=== PATIENT | female | born 1930 | race Caucasian/White ===

== ENCOUNTER 2016-11-26 09:26 | Observation (INO) | payer OTHER ==
[~2016-11-26] VITALS: Ht 148.6 cm; Wt 75.1 kg
[~2016-11-26 09:26] MED LIST: ASPIR 8181 M1 PO; AZO95 MG PO; B-COMPLEX W/VI1 EAC1 PO; BENICAR5 MG PO; CALCIUM PO; CALCIUM500 M4 PO; CHERATUSSIN AC473 ML PO; CIPRO500 MG PO; FISH OIL SOFTG1 EACH PO; MACROBID100 MG PO; MICARDIS80 MG PO; PYRIDIUM100 MG PO; RED YEAST RICE600 M1 PO; RED YEAST RICE600 MG PO; SPIRONOLACTONE25 MG PO; SUPPORT-5001 EACH PO; TELMISARTAN80 MG PO; TESSALON PERLE100 MG PO; VITAMIN D33000 UNIT PO; VITAMIN D400 UNIT PO; ZOFRAN ODT8 MG PO; ZOFRAN4 MG PO; [UNRECOGNIZED DRUG - REMARK] PO
[2016-11-26 10:55] LABS: EOSINOPHIL (%) 2.1 % (0-5); EOSINOPHIL COUNT 0.2 K/uL (0-0.3); HEMATOCRIT 38.5 % (36.0-46.0); IMMATURE GRANULOCYTE (%) 0.3 % (0.0-0.7); INSTRUMENT ABS NEUTROPHIL CT 5.6 K/uL; LYMPHOCYTE COUNT 0.8 K/uL (1.0-2.8); MCH 29.9 PG (29.0-34.0); MCHC 33.5 G/DL (30.0-36.0); MCV 89.1 FL (83-99); MEAN PLAT.VOLUME 8.4 uM^3 (9.5-12.4); MONOCYTE (%) 9.5 % (3-12); MONOCYTE COUNT 0.7 K/uL (0-0.8); NEUTROPHIL (%) 76.6 % (45-76); NEUTROPHIL COUNT 5.6 K/uL (1.8-6.4); PLATELET COUNT 180 K/uL (156-360); RBC DIS.WIDTH-CV 13.5 % (11.8-14.6); RBC DIS.WIDTH-SD 44.5 % (39-53); RED BLOOD COUNT 4.32 M/uL (3.80-5.20); WHITE BLOOD COUNT 7.3 K/uL (4.1-10.2)
[2016-11-26 11:00] LABS: TROP-I INTERPRETATION NEGATIVE; TROPONIN-I < 0.01 ng/mL (0.0-0.30)
[2016-11-26 11:06] LABS: CHLORIDE 97 mEq/L (99-109); POTASSIUM 4.6 mEq/L (3.7-5.4); SODIUM 129 mEq/L (136-147)
[2016-11-26 11:08] LABS: GLUCOSE 97 mg/dL (70-99)
[2016-11-26 11:10] LABS: ANION GAP 5 MEQ/L (2-14)
[2016-11-26 11:12] LABS: GFR ESTIMATE (CALCULATED) > 59 mL/min/
[2016-11-26 11:13] LABS: UREA NITROGEN (BUN) 20 mg/dL (9-23)
[2016-11-26] MEDS ORDERED: VITAMIN D31000 UNI2 PO ×2 (11:50→11:51)
[2016-11-26] MEDS ORDERED: RED YEAST RICE600 M1 PO (11:51)
[2016-11-26] MEDS ORDERED: CLOBETASOL PROP60 G1 TP (11:52)
[2016-11-26] MEDS ORDERED: ESTRACE42.5 GM VG (11:53)
[2016-11-26] MEDS ORDERED: PRESERVISION A1 EAC2 PO (11:54)
[2016-11-26] MEDS ORDERED: PROBIOTIC1 EAC1 PO (11:56)
[2016-11-26 12:40] VITALS: BP 134/64
[2016-11-26 17:19] VITALS: BP 174/70
[2016-11-26 17:59] LABS: TROP-I INTERPRETATION NEGATIVE; TROPONIN-I 0.01 ng/mL (0.0-0.30)
[2016-11-26 19:34] VITALS: BP 120/85
[2016-11-26 22:45] LABS: TROP-I INTERPRETATION NEGATIVE; TROPONIN-I < 0.01 ng/mL (0.0-0.30)
[2016-11-27] VITALS: BP 137/63
[2016-11-27 04:02] VITALS: BP 138/59
[2016-11-27 06:20] LABS: ANION GAP 3 MEQ/L (2-14); CHLORIDE 103 MEQ/L (99-109); GFR ESTIMATE (CALCULATED) > 59 mL/min/; GLUCOSE 95 mg/dL (70-99); POTASSIUM 4.6 MEQ/L (3.7-5.4); SAMPLE HEMOLYSIS CHECK 0; SAMPLE ICTERIC CHECK 0; SAMPLE LIPEMIA CHECK 0; UREA NITROGEN (BUN) 20 mg/dL (9-23)
[2016-11-27 06:32] LABS: SODIUM 136 MEQ/L (136-147)
[2016-11-27 07:16] VITALS: BP 142/67
== END 2016-11-27 09:16 | disposition home or self-care (01) ==
LOC: EME 09:26 → EDOF 11:40 → 5WEST 12:32
PROVIDERS: Emergency Medicine; Internal Medicine
DX: R07.9 Chest pain, unspecified (principal); I10 Essential (primary) hypertension; I34.0 Nonrheumatic mitral (valve) insufficiency; I27.2 Other secondary pulmonary hypertension; R42 Dizziness and giddiness; K21.9 Gastro-esophageal reflux disease without esophagitis; N28.89 Other specified disorders of kidney and ureter; E87.1 Hypo-osmolality and hyponatremia; H35.30 Unspecified macular degeneration; Z88.0 Allergy status to penicillin; Z88.8 Allergy status to other drugs, medicaments and biological substances
CPT/HCPCS: 71010; 80048; 83930; 83935; 84443; 84484; 85025; 93005; G0378; J1650; J7030

== ENCOUNTER 2017-07-09 23:19 | Inpatient (IN) | payer OTHER ==
[~2017-07-09] VITALS: Ht 147.3 cm; Wt 79.3 kg
[~2017-07-09 23:19] MED LIST changes: -B-COMPLEX W/VI1 EAC1 PO; +CLOBETASOL PROP60 G1 TP; +COMPLEX B-1001 EACH PO; +ESTRACE42.5 GM VG; +PRESERVISION A1 EAC2 PO; +PROBIOTIC1 EAC1 PO; +VITAMIN D31000 UNI2 PO
[2017-07-10 00:21] LABS: HEMATOCRIT 35.4 % (36.0-46.0); HEMOGLOBIN 12.4 G/DL (11.9-15.5); MCH 30.1 PG (29.0-34.0); MCV 85.9 FL (83-99); PLATELET COUNT 141 K/uL (156-360); RBC DIS.WIDTH-CV 13.4 % (11.8-14.6); RBC DIS.WIDTH-SD 42.1 % (39-53); RED BLOOD COUNT 4.12 M/uL (3.80-5.20); WHITE BLOOD COUNT 4.2 K/uL (4.1-10.2)
[2017-07-10 00:29] LABS: CHLORIDE 86 mEq/L (99-109); POTASSIUM 4.2 mEq/L (3.7-5.4)
[2017-07-10 00:31] LABS: GLUCOSE 107 mg/dL (70-99)
[2017-07-10 00:35] LABS: CREATININE 0.7 mg/dL (0.6-1.3); GFR ESTIMATE (CALCULATED) > 59 mL/min/
[2017-07-10 00:36] LABS: UREA NITROGEN (BUN) 11 mg/dL (9-23)
[2017-07-10 00:43] LABS: SODIUM 117 mEq/L (136-147)
[2017-07-10 01:11] LABS: TROP-I INTERPRETATION NEGATIVE; TROPONIN-I < 0.01 ng/mL (0.0-0.30)
[2017-07-10 04:12] LABS: CHLORIDE 89 mEq/L (99-109); POTASSIUM 4.5 mEq/L (3.7-5.4)
[2017-07-10 04:13] LABS: GLUCOSE 131 mg/dL (70-99)
[2017-07-10 04:17] LABS: CREATININE 0.7 mg/dL (0.6-1.3); GFR ESTIMATE (CALCULATED) > 59 mL/min/
[2017-07-10 04:18] LABS: UREA NITROGEN (BUN) 10 mg/dL (9-23)
[2017-07-10 04:25] LABS: SODIUM 116 mEq/L (136-147)
[2017-07-10 06:10] VITALS: BP 183/76
[2017-07-10 08:00] VITALS: BP 164/74
[2017-07-10] MEDS ORDERED: RISEDRONATE SOD35 M1 PO (11:30)
[2017-07-10] MEDS ORDERED: IRON325 M1 PO (11:31)
[2017-07-10] MEDS ORDERED: CLONIDINE HCL0.1 MG PO (11:31)
[2017-07-10] MEDS ORDERED: DAIRY RELIE3000 UNIT PO (11:35)
[2017-07-10] MEDS ORDERED: [UNRECOGNIZED DRUG - OTHER] PO (11:37)
[2017-07-10] MEDS ORDERED: RANITIDINE HCL150 MG PO (11:38)
[2017-07-10] MEDS ORDERED: BALANCE B-1001 EAC1 PO (11:38)
[2017-07-10] MEDS ORDERED: GLUCOSAMINE CH1 EAC7 PO (11:38)
[2017-07-10 11:52] VITALS: BP 152/70
[2017-07-10 12:48] LABS: CHLORIDE 92 MEQ/L (99-109); CREATININE 0.7 MG/DL (0.6-1.3); GFR ESTIMATE (CALCULATED) > 59 mL/min/; GLUCOSE 148 mg/dL (70-99); POTASSIUM 4.9 MEQ/L (3.7-5.4); UREA NITROGEN (BUN) 12 mg/dL (9-23)
[2017-07-10 12:49] LABS: SODIUM 126 MEQ/L (136-147)
[2017-07-10 12:52] LABS: TROP-I INTERPRETATION NEGATIVE; TROPONIN-I < 0.01 ng/mL (0.0-0.30)
[2017-07-10 15:38] LABS: CHLORIDE 90 MEQ/L (99-109); POTASSIUM 4.3 MEQ/L (3.7-5.4); SODIUM 122 MEQ/L (136-147)
[2017-07-10 15:43] LABS: CREATININE 0.8 MG/DL (0.6-1.3); GFR ESTIMATE (CALCULATED) > 59 mL/min/; UREA NITROGEN (BUN) 14 mg/dL (9-23)
[2017-07-10 16:00] LABS: GLUCOSE 254 mg/dL (70-99)
[2017-07-10 16:30] VITALS: BP 136/72
[2017-07-10 17:02] LABS: APPEARANCE CLEAR ((CLEAR)); BILIRUBIN NEGATIVE; BLOOD NEGATIVE; COLOR STRAW ((YELLOW)); GLUCOSE (STRIP) >=500; KETONES NEGATIVE; LEUKOCYTES NEGATIVE; NITRITE NEGATIVE; PROTEIN (STRIP) NEGATIVE; UCUL ADDED? NO; UROBILINOGEN 0.2 MG/DL (0.2-1.0)
[2017-07-10 18:39] LABS: CHLORIDE 89 MEQ/L (99-109); CREATININE 0.7 MG/DL (0.6-1.3); GFR ESTIMATE (CALCULATED) > 59 mL/min/; GLUCOSE 117 mg/dL (70-99); POTASSIUM 4.5 MEQ/L (3.7-5.4); SODIUM 121 MEQ/L (136-147); TROP-I INTERPRETATION NEGATIVE; TROPONIN-I < 0.01 ng/mL (0.0-0.30); UREA NITROGEN (BUN) 16 mg/dL (9-23)
[2017-07-10 19:43] VITALS: BP 144/65
[2017-07-10 20:09] LABS: CHLORIDE 88 MEQ/L (99-109); CREATININE 0.7 MG/DL (0.6-1.3); GFR ESTIMATE (CALCULATED) > 59 mL/min/; GLUCOSE 160 mg/dL (70-99); POTASSIUM 4.1 MEQ/L (3.7-5.4); SODIUM 120 MEQ/L (136-147); UREA NITROGEN (BUN) 17 mg/dL (9-23)
[2017-07-10 22:37] LABS: CHLORIDE 88 MEQ/L (99-109); CREATININE 0.7 MG/DL (0.6-1.3); GFR ESTIMATE (CALCULATED) > 59 mL/min/; GLUCOSE 120 mg/dL (70-99); SODIUM 120 MEQ/L (136-147); UREA NITROGEN (BUN) 18 mg/dL (9-23)
[2017-07-10 23:41] VITALS: BP 137/64
[2017-07-11 00:11] LABS: CHLORIDE 88 mEq/L (99-109); POTASSIUM 4.2 mEq/L (3.7-5.4); SODIUM 121 mEq/L (136-147)
[2017-07-11 00:13] LABS: GLUCOSE 112 mg/dL (70-99)
[2017-07-11 00:16] LABS: CREATININE 0.7 mg/dL (0.6-1.3); GFR ESTIMATE (CALCULATED) > 59 mL/min/
[2017-07-11 00:17] LABS: UREA NITROGEN (BUN) 17 mg/dL (9-23)
[2017-07-11 01:17] LABS: CHLORIDE 88 mEq/L (99-109); POTASSIUM 4.1 mEq/L (3.7-5.4); SODIUM 121 mEq/L (136-147)
[2017-07-11 01:19] LABS: GLUCOSE 114 mg/dL (70-99)
[2017-07-11 01:23] LABS: CREATININE 0.7 mg/dL (0.6-1.3); GFR ESTIMATE (CALCULATED) > 59 mL/min/; UREA NITROGEN (BUN) 17 mg/dL (9-23)
[2017-07-11 03:55] LABS: CHLORIDE 89 mEq/L (99-109); SODIUM 120 mEq/L (136-147)
[2017-07-11 03:57] LABS: GLUCOSE 107 mg/dL (70-99)
[2017-07-11 04:01] LABS: CREATININE 0.7 mg/dL (0.6-1.3); GFR ESTIMATE (CALCULATED) > 59 mL/min/
[2017-07-11 04:02] LABS: UREA NITROGEN (BUN) 15 mg/dL (9-23)
[2017-07-11 04:04] VITALS: BP 170/74
[2017-07-11 05:24] LABS: HEMATOCRIT 32.7 % (36.0-46.0); HEMOGLOBIN 11.3 G/DL (11.9-15.5); MCH 29.4 PG (29.0-34.0); MCHC 34.6 G/DL (30.0-36.0); MCV 85.2 FL (83-99); PLATELET COUNT 146 K/uL (156-360); RBC DIS.WIDTH-CV 13.3 % (11.8-14.6); RBC DIS.WIDTH-SD 41.6 % (39-53); RED BLOOD COUNT 3.84 M/uL (3.80-5.20); WHITE BLOOD COUNT 5.1 K/uL (4.1-10.2)
[2017-07-11 05:32] LABS: PTT 28.4 SEC (25-37)
[2017-07-11 05:52] LABS: CHLORIDE 88 MEQ/L (99-109); CREATININE 0.6 MG/DL (0.6-1.3); GFR ESTIMATE (CALCULATED) > 59 mL/min/; GLUCOSE 118 mg/dL (70-99); POTASSIUM 3.8 MEQ/L (3.7-5.4); SODIUM 120 MEQ/L (136-147); UREA NITROGEN (BUN) 15 mg/dL (9-23)
[2017-07-11 07:30] LABS: CHLORIDE 88 MEQ/L (99-109); CREATININE 0.6 MG/DL (0.6-1.3); GFR ESTIMATE (CALCULATED) > 59 mL/min/; GLUCOSE 111 mg/dL (70-99); POTASSIUM 4.1 MEQ/L (3.7-5.4); SODIUM 119 MEQ/L (136-147); UREA NITROGEN (BUN) 14 mg/dL (9-23)
[2017-07-11 08:45] VITALS: BP 146/93
[2017-07-11 10:03] LABS: CHLORIDE 88 MEQ/L (99-109); CREATININE 0.6 MG/DL (0.6-1.3); GFR ESTIMATE (CALCULATED) > 59 mL/min/; GLUCOSE 107 mg/dL (70-99); POTASSIUM 4.4 MEQ/L (3.7-5.4); SODIUM 122 MEQ/L (136-147); UREA NITROGEN (BUN) 14 mg/dL (9-23)
[2017-07-11 12:00] VITALS: BP 139/65
[2017-07-11 12:10] LABS: CHLORIDE 89 MEQ/L (99-109); CREATININE 0.6 MG/DL (0.6-1.3); GFR ESTIMATE (CALCULATED) > 59 mL/min/; GLUCOSE 113 mg/dL (70-99); POTASSIUM 3.7 MEQ/L (3.7-5.4); SODIUM 122 MEQ/L (136-147); UREA NITROGEN (BUN) 15 mg/dL (9-23)
[2017-07-11 14:06] LABS: CHLORIDE 89 MEQ/L (99-109); CREATININE 0.6 MG/DL (0.6-1.3); GFR ESTIMATE (CALCULATED) > 59 mL/min/; GLUCOSE 124 mg/dL (70-99); POTASSIUM 3.9 MEQ/L (3.7-5.4); SODIUM 122 MEQ/L (136-147); UREA NITROGEN (BUN) 15 mg/dL (9-23)
[2017-07-11 15:09] LABS: CHLORIDE 92 MEQ/L (99-109); CREATININE 0.6 MG/DL (0.6-1.3); GFR ESTIMATE (CALCULATED) > 59 mL/min/; GLUCOSE 121 mg/dL (70-99); POTASSIUM 4.1 MEQ/L (3.7-5.4); SODIUM 124 MEQ/L (136-147); UREA NITROGEN (BUN) 15 mg/dL (9-23)
[2017-07-11 16:51] VITALS: BP 183/76
[2017-07-11 17:06] LABS: CHLORIDE 92 MEQ/L (99-109); POTASSIUM 4.7 MEQ/L (3.7-5.4); SODIUM 123 MEQ/L (136-147)
[2017-07-11 17:11] LABS: CREATININE 0.5 MG/DL (0.6-1.3); GFR ESTIMATE (CALCULATED) > 59 mL/min/; GLUCOSE 118 mg/dL (70-99); UREA NITROGEN (BUN) 16 mg/dL (9-23)
[2017-07-11 19:05] VITALS: BP 169/72
[2017-07-11 19:21] LABS: CHLORIDE 93 MEQ/L (99-109); CREATININE 0.7 MG/DL (0.6-1.3); GFR ESTIMATE (CALCULATED) > 59 mL/min/; GLUCOSE 124 mg/dL (70-99); POTASSIUM 4.7 MEQ/L (3.7-5.4); SODIUM 127 MEQ/L (136-147); UREA NITROGEN (BUN) 15 mg/dL (9-23)
[2017-07-11 21:21] LABS: CHLORIDE 94 MEQ/L (99-109); CREATININE 0.8 MG/DL (0.6-1.3); GFR ESTIMATE (CALCULATED) > 59 mL/min/; GLUCOSE 103 mg/dL (70-99); POTASSIUM 4.5 MEQ/L (3.7-5.4); SODIUM 127 MEQ/L (136-147); UREA NITROGEN (BUN) 17 mg/dL (9-23)
[2017-07-11 23:12] LABS: CHLORIDE 94 MEQ/L (99-109); CREATININE 0.7 MG/DL (0.6-1.3); GFR ESTIMATE (CALCULATED) > 59 mL/min/; GLUCOSE 119 mg/dL (70-99); POTASSIUM 5.1 MEQ/L (3.7-5.4); SODIUM 128 MEQ/L (136-147); UREA NITROGEN (BUN) 17 mg/dL (9-23)
[2017-07-12 01:00] VITALS: BP 145/61
[2017-07-12 01:31] LABS: CHLORIDE 96 mEq/L (99-109); POTASSIUM 4.7 mEq/L (3.7-5.4)
[2017-07-12 01:32] LABS: SODIUM 127 mEq/L (136-147)
[2017-07-12 01:33] LABS: GLUCOSE 109 mg/dL (70-99)
[2017-07-12 01:37] LABS: CREATININE 0.7 mg/dL (0.6-1.3); GFR ESTIMATE (CALCULATED) > 59 mL/min/
[2017-07-12 01:38] LABS: UREA NITROGEN (BUN) 16 mg/dL (9-23)
[2017-07-12 03:30] LABS: CHLORIDE 96 mEq/L (99-109); POTASSIUM 4.8 mEq/L (3.7-5.4); SODIUM 128 mEq/L (136-147)
[2017-07-12 03:31] LABS: GLUCOSE 104 mg/dL (70-99)
[2017-07-12 03:35] LABS: CREATININE 0.8 mg/dL (0.6-1.3); GFR ESTIMATE (CALCULATED) > 59 mL/min/
[2017-07-12 03:36] LABS: UREA NITROGEN (BUN) 16 mg/dL (9-23)
[2017-07-12 04:39] VITALS: BP 131/63
[2017-07-12 06:21] LABS: CHLORIDE 95 MEQ/L (99-109); CREATININE 0.7 MG/DL (0.6-1.3); GFR ESTIMATE (CALCULATED) > 59 mL/min/; GLUCOSE 101 mg/dL (70-99); POTASSIUM 4.7 MEQ/L (3.7-5.4); SODIUM 129 MEQ/L (136-147); UREA NITROGEN (BUN) 16 mg/dL (9-23)
[2017-07-12 07:35] LABS: CHLORIDE 95 MEQ/L (99-109); CREATININE 0.7 MG/DL (0.6-1.3); GFR ESTIMATE (CALCULATED) > 59 mL/min/; GLUCOSE 106 mg/dL (70-99); POTASSIUM 4.4 MEQ/L (3.7-5.4); SODIUM 128 MEQ/L (136-147); UREA NITROGEN (BUN) 15 mg/dL (9-23)
[2017-07-12 08:18] VITALS: BP 132/62
[2017-07-12 11:19] VITALS: BP 130/58
[2017-07-12 15:45] VITALS: BP 149/69
[2017-07-12 17:45] LABS: CHLORIDE 96 MEQ/L (99-109); CREATININE 0.7 MG/DL (0.6-1.3); GFR ESTIMATE (CALCULATED) > 59 mL/min/; GLUCOSE 118 mg/dL (70-99); POTASSIUM 4.5 MEQ/L (3.7-5.4); SODIUM 130 MEQ/L (136-147); UREA NITROGEN (BUN) 18 mg/dL (9-23)
[2017-07-12 19:58] VITALS: BP 141/64
[2017-07-13 00:06] VITALS: BP 137/64
[2017-07-13 01:03] LABS: CHLORIDE 96 mEq/L (99-109); POTASSIUM 4.5 mEq/L (3.7-5.4); SODIUM 130 mEq/L (136-147)
[2017-07-13 01:05] LABS: GLUCOSE 107 mg/dL (70-99)
[2017-07-13 01:09] LABS: CREATININE 0.9 mg/dL (0.6-1.3); GFR ESTIMATE (CALCULATED) > 59 mL/min/
[2017-07-13 01:10] LABS: UREA NITROGEN (BUN) 17 mg/dL (9-23)
[2017-07-13 04:00] VITALS: BP 149/72
[2017-07-13 05:36] LABS: BASOPHIL (%) 0.6 % (0-1); EOSINOPHIL (%) 3.6 % (0-5); EOSINOPHIL COUNT 0.1 K/uL (0-0.3); HEMATOCRIT 34.9 % (36.0-46.0); HEMOGLOBIN 11.7 G/DL (11.9-15.5); IMMATURE GRANULOCYTE (%) 0.3 % (0.0-0.7); LYMPHOCYTE (%) 30.7 % (15-42); MCH 29.6 PG (29.0-34.0); MCHC 33.5 G/DL (30.0-36.0); MCV 88.4 FL (83-99); MONOCYTE (%) 19.9 % (3-12); MONOCYTE COUNT 0.7 K/uL (0-0.8); NEUTROPHIL (%) 44.9 % (45-76); NEUTROPHIL COUNT 1.5 K/uL (1.8-6.4); PLATELET COUNT 173 K/uL (156-360); RBC DIS.WIDTH-CV 13.8 % (11.8-14.6); RBC DIS.WIDTH-SD 44.5 % (39-53); RED BLOOD COUNT 3.95 M/uL (3.80-5.20); WHITE BLOOD COUNT 3.3 K/uL (4.1-10.2)
[2017-07-13 06:12] LABS: CHLORIDE 97 MEQ/L (99-109); CREATININE 0.7 MG/DL (0.6-1.3); GFR ESTIMATE (CALCULATED) > 59 mL/min/; GLUCOSE 101 mg/dL (70-99); POTASSIUM 4.2 MEQ/L (3.7-5.4); SODIUM 132 MEQ/L (136-147); UREA NITROGEN (BUN) 16 mg/dL (9-23)
[2017-07-13 08:40] VITALS: BP 148/66
[2017-07-13 09:46] LABS: CHLORIDE 97 MEQ/L (99-109); POTASSIUM 4.6 MEQ/L (3.7-5.4); SODIUM 132 MEQ/L (136-147)
[2017-07-13 09:52] LABS: CREATININE 0.7 MG/DL (0.6-1.3); GFR ESTIMATE (CALCULATED) > 59 mL/min/; GLUCOSE 106 mg/dL (70-99); UREA NITROGEN (BUN) 15 mg/dL (9-23)
[2017-07-13 12:23] VITALS: BP 162/70
[2017-07-13] MEDS ORDERED: APRESOLINE10 MG PO (13:42)
[2017-07-13] MEDS ORDERED: LOSARTAN POTASS50 MG PO (14:00)
== END 2017-07-13 14:47 | disposition home health service (06) | DRG 202 ==
LOC: EME 23:19 → EDOF 07-10 04:15 → 4EAST 07-10 04:15 → ENRESERV 07-10 04:19 → 4EAST 07-10 05:53
PROVIDERS: Emergency Medicine Emergency Medical Services; Hospitalist; Internal Medicine Nephrology
PROC: 0T9B70Z Drainage of Bladder with Drainage Device, Via Natural or Artificial Opening (ICD-10-PCS; principal; 2017-07-10)
DX: J20.9 Acute bronchitis, unspecified (principal); J18.9 Pneumonia, unspecified organism; E22.2 Syndrome of inappropriate secretion of antidiuretic hormone; H35.30 Unspecified macular degeneration; I10 Essential (primary) hypertension; K21.9 Gastro-esophageal reflux disease without esophagitis; N81.89 Other female genital prolapse
CPT/HCPCS: 70450; 71046; 71250; 80048; 80048 91; 81003; 82533 91; 82948; 83605; 83930; 83935; 84300; 84484; 85025; 85027; 85610; 85730; 87040; 93005; 99281; 99285; J0456; J1100; J1644; J2405; J2597; J7040; J7070

== ENCOUNTER 2017-12-04 18:32 | Emergency (ER) | payer OTHER ==
[~2017-12-04] VITALS: Ht 147.3 cm; Wt 76.3 kg
[~2017-12-04 18:32] MED LIST changes: +APRESOLINE10 MG PO; +BALANCE B-1001 EAC1 PO; +CLONIDINE HCL0.1 MG PO; +DAIRY RELIE3000 UNIT PO; +GLUCOSAMINE CH1 EAC7 PO; +IRON325 M1 PO; +LOSARTAN POTASS50 MG PO; +RANITIDINE HCL150 MG PO; +RISEDRONATE SOD35 M1 PO; +[UNRECOGNIZED DRUG - OTHER] PO
[2017-12-04 19:28] LABS: HEMATOCRIT 35.9 % (36.0-46.0); HEMOGLOBIN 12.5 G/DL (11.9-15.5); MCHC 34.8 G/DL (30.0-36.0); MCV 86.3 FL (83-99); PLATELET COUNT 212 K/uL (156-360); RBC DIS.WIDTH-CV 13.5 % (11.8-14.6); RBC DIS.WIDTH-SD 42.4 % (39-53); RED BLOOD COUNT 4.16 M/uL (3.80-5.20); WHITE BLOOD COUNT 6.7 K/uL (4.1-10.2)
[2017-12-04 19:40] LABS: CHLORIDE 100 mEq/L (99-109); POTASSIUM 4.7 mEq/L (3.7-5.4); SODIUM 132 mEq/L (136-147)
[2017-12-04 19:42] LABS: GLUCOSE 83 mg/dL (70-99)
[2017-12-04 19:45] LABS: CREATININE 1.1 mg/dL (0.6-1.3); GFR ESTIMATE (CALCULATED) 50 mL/min/
[2017-12-04 19:46] LABS: UREA NITROGEN (BUN) 26 mg/dL (9-23)
[2017-12-04 19:54] LABS: TROP-I INTERPRETATION NEGATIVE; TROPONIN-I < 0.01 ng/mL (0.0-0.30)
[2017-12-04 22:20] LABS: TROP-I INTERPRETATION NEGATIVE; TROPONIN-I 0.01 ng/mL (0.0-0.30)
[2017-12-05 01:22] VITALS: BP 157/87
== END 2017-12-05 01:22 | disposition home or self-care (01) ==
LOC: EME 18:32 → RME 18:32
PROVIDERS: Physician Assistant
DX: R04.2 Hemoptysis (principal); E87.1 Hypo-osmolality and hyponatremia; I10 Essential (primary) hypertension; K21.9 Gastro-esophageal reflux disease without esophagitis; Z90.49 Acquired absence of other specified parts of digestive tract; Z79.82 Long term (current) use of aspirin; Z88.0 Allergy status to penicillin; Z88.8 Allergy status to other drugs, medicaments and biological substances
CPT/HCPCS: 71046; 71275; 80048; 84484; 85027; 87070; 87205; 93005; 99281; 99284; J7030